=== PATIENT | male | born 1980 | race Two or more races ===

== ENCOUNTER 2017-01-01 23:53 | Emergency (ER) | payer MEDICAID ==
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
[2017-01-02 01:01] LABS: % MONOCYTES 5.7 % (2.0-10.0); MEAN CORPUSCULAR HGB CONC 34.2 pg (28.0-36.0); RED BLOOD COUNT 5.35 Mil/cmm (4.30-5.70); RED CELL DISTRIBUTION WIDTH 12.8 % (11.5-20.0)
[2017-01-02 01:04] LABS: % BASOPHILS 0.4 % (0.0-2.0); % EOSINOPHILS 0.7 % (0.0-5.0); % LYMPHOCYTES 13.8 % (20.0-50.0); % NEUTROPHILS 79.4 % (40.0-80.0); HEMATOCRIT 49.2 % (41.0-60); HEMOGLOBIN 16.8 gm/dL (12-16); MEAN CELL VOLUME 91.9 fl (80-99); MEAN CORPUSCULAR HEMOGLOBIN 31.5 pg (26.0-30.0); MEAN PLATELET VOLUME 10.3 fl; NEUTROPHILE ABSOLUTE 10.7 Th/cmm (1.8-8.0); PLATELET COUNT 137 Th/cmm (150-400)
[2017-01-02 01:05] LABS: WHITE BLOOD COUNT 13.6 Th/cmm (4.8-10.8)
[2017-01-02 01:11] LABS: INR 0.93 (0.5-1.4); PROTHROMBIN TIME (TEST) 9.7 SECONDS (9.5-11.5)
[2017-01-02 01:14] LABS: ALB/GLOB RATIO 1.8 (1.0-1.8); ALKALINE PHOSPHATASE 51 U/L (34-104); ANION GAP 13.5 (7.0-16.0); BILIRUBIN,TOTAL 0.4 mg/dL (0.3-1.0); BUN - UREA NITROGEN 14 mg/dL (7-25); CALCIUM SERUM 9.1 mg/dL (8.6-10.3); CARBON DIOXIDE 21.1 mEq/L (21.0-31.0); CHLORIDE 107 mEq/L (98-107); GLUCOSE 95 mg/dL (70-105); POTASSIUM SERUM 3.6 mEq/L (3.5-5.1); SGOT 35 U/L (13-39); SGPT/ALT 34 U/L (7-52); SODIUM SERUM 138 mEq/L (136-145)
--- NOTE | 2017-01-02 09:09 | Diagnostic Imaging Report ---
CT scan of the brain without contrast History: Headache, trauma Total DLP equals 785 CTDI equals 41.4 Axial sections were obtained from the base of the skull to the vertex. There is a normal ventricular system size. No focal parenchymal lesions are seen. No evidence of any mass effect or shift of midline structures. No extra-axial masses or abnormal fluid collections. Impression: No acute abnormalities
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
== END 2017-01-02 05:28 | disposition home or self-care (01) ==
LOC: ER 23:53
DX: S09.90XA Unspecified injury of head, initial encounter (principal); S19.9XXA Unspecified injury of neck, initial encounter; X58.XXXA Exposure to other specified factors, initial encounter; Y93.89 Activity, other specified; Y92.89 Other specified places as the place of occurrence of the external cause; Y99.8 Other external cause status; F17.200 Nicotine dependence, unspecified, uncomplicated
CPT/HCPCS: 36415-UA; 70450-TC; 72125-TC; 80053-TC; 80320-TC; 84484-TC; 85025-TC; 85610-TC